=== PATIENT | male | born 1955 | race Caucasian/White ===

== ENCOUNTER 2016-10-28 11:40 | Emergency (ER) | payer SELFPAY ==
[~2016-10-28] VITALS: Ht 170.2 cm; Wt 61.0 kg
[2016-10-28 11:43] VITALS: Ht 170.2 cm; Wt 61.0 kg
== END 2016-10-28 18:40 | disposition left against medical advice (07) ==
LOC: E/R 11:40
DX: Z53.21 Procedure and treatment not carried out due to patient leaving prior to being seen by health care provider (principal)

== ENCOUNTER 2017-06-24 05:20 | Inpatient (IN) | END 2017-06-29 17:43 | disposition home or self-care (01) | DRG 872 ==